=== PATIENT | male | born 1965 | race Caucasian/White ===

== ENCOUNTER 2020-06-07 07:01 | Day surgery (SDC) | payer MEDICAID ==
[2020-05-31 15:48] LABS: EOSINOPHILS # (AUTO) 0.1 X10'3 (0-0.9); LYMPHOCYTES # (AUTO) 1.7 X10'3 (1.1-4.8); MONOCYTES # (AUTO) 0.5 X10'3 (0-0.9); NEUTROPHILS # (AUTO) 3.4 X10'3 (1.8-7.7); PRE OP HEMOGLOBIN 15.2 g/dL (14.0-17.9)
[2020-05-31 15:50] LABS: BASOPHILS % (AUTO) 0.4 % (0-1); LYMPHOCYTES % (AUTO) 29.5 % (21-51); MEAN CORPUSCULAR HEMOGLOBIN 29.9 PG (27.0-31.0); MEAN CORPUSCULAR HGB CONC 33.3 g/dL (33.0-36.5); MEAN CORPUSCULAR VOLUME 89.8 FL (78-98); NEUTROPHILS % (AUTO) 60.1 % (42-75); PRE OP HEMATOCRIT 45.8 % (42.0-52.0); PRE OP PLATELET COUNT 192 X10'3 (140-440); RED BLOOD COUNT 5.09 X10'6 (4.70-6.10); RED CELL DISTRIBUTION WIDTH 14.1 % (11.5-14.5)
[2020-05-31 16:15] LABS: ALBUMIN/GLOBULIN RATIO 1.3 (1.1-1.5); ALKALINE PHOSPHATASE 59 IU/L (46-116); BLOOD UREA NITROGEN 24 MG/DL (7-18); BUN/CREATININE RATIO 30.4 (5.4-32.0); CALCIUM 9.2 MG/DL (8.5-10.1); CHLORIDE 104 MMOL/L (99-107); CREATININE 0.79 MG/DL (0.60-1.10); PRE OP ALT 29 U/L (30-65); PRE OP ANION GAP 6 (8-16); PRE OP AST 13 U/L (10-37); PRE OP BILIRUB, TOTAL 0.4 MG/DL (0.0-1.0); PRE OP GLUCOSE 100 MG/DL (70-104); PRE OP POTASSIUM 3.9 MMOL/L (3.4-5.1); PRE OP SODIUM 141 MMOL/L (135-145); TOTAL CARBON DIOXIDE 30.8 MMOL/L (24-32); eGFR > 90 ML/MIN
[2020-06-07] VITALS (11 sets, daily range): BP systolic 124–149; BP diastolic 71–89
[~2020-06-07] VITALS: Ht 182.9 cm; Wt 90.6 kg
[~2020-06-07 07:01] MED LIST: BUPIVAcaine/PF 2.5 mg/ml (0.25%) 30ml vial ONE; LIDOcaine 1% 30ml preserv. free vial ONE; MULT-1085 PO; NIAC500C12 PO; OMEG1CAP2 PO; RED600CA2 PO; ceFAZolin 2gm in dextrose, iso 50 ML IV ONE; famotidine 20mg tablet PO ONE; ringers solution, lacted 1,000 ML IV SCH
[2020-06-07] MEDS ORDERED: LIDOcaine 1% (10mg/ml) 2ml vial ONE (07:24)
[2020-06-07] MEDS ORDERED: labetalol 20mg/4ml (5mg/ml) syringe IV PRN (07:30)
[2020-06-07] MEDS ORDERED: ondansetron/PF 4mg/2ml inj IV PRN (07:30)
[2020-06-07] MEDS ORDERED: fentaNYL/PF 50MCG/1 ML 2ML syringe IV PRN ×2 (07:30)
[2020-06-07] MEDS ORDERED: ringers solution, lacted 1,000 ML IV SCH (07:30)
[2020-06-07] MEDS ORDERED: morphine 4 MG/ML inj SYRINge IV PRN (07:30)
[2020-06-07] MEDS ORDERED: morphine 2 MG/ML inj. syringe IV PRN (07:30)
[2020-06-07] MEDS ORDERED: hydrALAZINE 20mg/ml inj. IV PRN (07:30)
[2020-06-07] MEDS ORDERED: midazolam 2 mg/2 ml injection ONE (09:34)
[2020-06-07] MEDS ORDERED: fentaNYL/PF 50MCG/1 ML 2ML syringe ONE (09:34)
[2020-06-07] MEDS ORDERED: LIDOcaine 2% (20mg/ml) 5ml vial ONE (09:46)
[2020-06-07] MEDS ORDERED: ondansetron/PF 4mg/2ml inj ONE (09:47)
[2020-06-07] MEDS ORDERED: dexamethasone sod phosphate 4mg/ml inj. ONE (09:47)
[2020-06-07] MEDS ORDERED: rocuronium 10mg/ml inj IV ONE (09:47)
[2020-06-07] MEDS ORDERED: glycopyrrolate 0.2mg/ml inj ONE (09:47)
[2020-06-07] MEDS ORDERED: propofol inj 20 ML IV ONE (09:47)
[2020-06-07] MEDS ORDERED: HYDROcodone/acetaminophen 5mg/325mg tablet PO PRN (10:55)
[2020-06-07] MEDS ORDERED: HYDROcodone/acetaminophen 10/325mg tab PO PRN (10:55)
--- NOTE | 2020-06-07 10:55 | NUR ---
Received from OR via BED , accompanied by Anesthesiologist DR REYES and report given by Anesthesiolgist. PATIENT WAKING UP, DENIES PAIN, V/S WNL, NEUROVASCULAR CHECKS INTACT, 20G PIV LUE, SCD ON, BANDAIDS TO LAP SIGHTS OF ABDOMEN CDI.
--- NOTE | 2020-06-07 13:05 | NUR ---
PATIENT A&OX4, DENIES PAIN, V/S WNL, NEUROVASCULAR CHECKS INTACT, 20G PIV LUE D/C, SCD OFF, BANDAIDS TO LAP SIGHTS OF ABDOMEN CDI.. PATIENT HAS VOIDED 400+CC , I HAVE REVIEWED D/C INSTRUCTIONS WITH PATIENT AND FAMILY HAVE VERBALIZED UNDERSTANDING.PATIENT WAS D/C HOME WITH ALL BELONGINGS AND FAMILY GAVE TRANSPORT HOME.
== END 2020-06-07 13:05 | disposition home or self-care (01) ==
LOC: PAS 07:01
PROVIDERS: ATTEND Surgery
DX: K40.90 Unilateral inguinal hernia, without obstruction or gangrene, not specified as recurrent (principal); K42.9 Umbilical hernia without obstruction or gangrene; Z79.899 Other long term (current) drug therapy; Z98.890 Other specified postprocedural states; Z20.822 Contact with and (suspected) exposure to COVID-19
CPT/HCPCS: 36415; 49585; 49650; 80053; 82948; 85025; 87635; 93005; C1781; J1100; J2001; J2250; J2405; J2704; J3010; J3490; J7120; S2900; A4215; A4618; A7000

== ENCOUNTER 2023-01-24 10:44 | Emergency (ER) | payer MEDICAID ==
[~2023-01-24] VITALS: Ht 182.9 cm; Wt 81.8 kg
[~2023-01-24 10:44] MED LIST changes: -BUPIVAcaine/PF 2.5 mg/ml (0.25%) 30ml vial ONE; -LIDOcaine 1% 30ml preserv. free vial ONE; -ceFAZolin 2gm in dextrose, iso 50 ML IV ONE; -famotidine 20mg tablet PO ONE; -ringers solution, lacted 1,000 ML IV SCH
[2023-01-24 11:01] VITALS: TEMP 97.8
[2023-01-24 12:43] LABS: BASOPHILS % (AUTO) 0.3 % (0-1); EOSINOPHILS % (AUTO) 0.8 % (0-6); HEMATOCRIT 44.3 % (42.0-52.0); HEMOGLOBIN 14.6 g/dl (14.0-17.9); LYMPHOCYTES % (AUTO) 22.5 % (21-51); MEAN CORPUSCULAR HEMOGLOBIN 29.9 PG (27.0-31.0); MEAN CORPUSCULAR HGB CONC 32.9 g/dL (33.0-36.5); MEAN CORPUSCULAR VOLUME 90.8 FL (78-98); MEAN PLATELET VOLUME 8.9 FL (7.4-10.4); MONOCYTES # (AUTO) 0.5 X10'3 (0-0.9); MONOCYTES % (AUTO) 10.7 % (2-12); NEUTROPHILS % (AUTO) 65.7 % (42-75); PLATELET COUNT 166 X10'3 (140-440); RED BLOOD COUNT 4.88 X10'6 (4.70-6.10); RED CELL DISTRIBUTION WIDTH 14.7 % (11.5-14.5); WHITE BLOOD COUNT 4.6 X10'3 (4.5-11.0)
--- NOTE | 2023-01-24 12:47 | NUR ---
AWAITING RN TO REVIEW PATIENT ASSESSMENTS.
[2023-01-24 12:53] VITALS: BP 120/88; PULSE 50; RESP 18; O2SAT 98
--- NOTE | 2023-01-24 12:57 | NUR ---
PTS AIRWAY PATENT, BREATHING UNLABORED AND EVEN. PT RIGHT RADIAL PULSE 50.
== END 2023-01-24 12:58 | disposition home or self-care (01) ==
LOC: ER 10:44
DX: L76.22 Postprocedural hemorrhage of skin and subcutaneous tissue following other procedure (principal); Z79.899 Other long term (current) drug therapy
CPT/HCPCS: 36415; 85025; 99283; A6449